=== PATIENT | male | born 1985 | race Caucasian/White ===

== ENCOUNTER 2019-08-18 16:42 | Emergency (ER) | payer OTHER, SELFPAY ==
--- NOTE | 2019-08-18 17:06 | HMH.EDUTC ---
[facility] [place] Disposition Clinical Impression: Tick bite Qualifiers: Encounter type: initial encounter Qualified Code(s): W57.XXXA - Bitten or stung by nonvenomous insect and other nonvenomous arthropods, initial encounter Disposition: Home, Self-Care Condition on Discharge: Good Instructions: Protect Yourself from Tickborne Illnesses Additional Instructions: Check yourself frequently for ticks. The longer a tick remains embedded the more likely it is to give you a tick borne illness. Follow up with your regular doctor. Take the medications as directed. GO TO THE ER FOR ANY WORSENING SYMPTOMS OR CONCERNS Prescriptions: Mupirocin [Bactroban 2% Ointment 22gm tube] 1 applicatio TP TID 7 Days #1 tube Transmission Status: Received by [facility] Doxycycline Hyclate [Doxycycline 100mg Capsule] 100 mg PO Q12 10 Days #20 cap Transmission Status: Received by [facility] Referrals: Carlos Johnson MD [Primary Care Provider] - Time of Disposition: 17:27 Medical Decision Making - Medical Records Medical records reviewed: No: I reviewed the patient's medical records. - Obey Inquiry Pt receiving controlled substance: No Vital Signs: 08/18/19 17:08 08/18/19 17:30 Temperature 98.3 F 98.3 F Temperature Source Oral Pulse Rate 112 H Pulse Rate [Right Brachial] 112 H Respiratory Rate 20 20 Blood Pressure 130/70 Blood Pressure [Right Arm] 130/70 Blood Pressure Mean [Right Arm] 90 Blood Pressure Source [Right Arm] Automatic Cuff Blood Pressure Position [Right Arm] Sitting 02 Sat by Pulse Oximetry 100 Oxygen Delivery Method Room Air [facility] [place] HPI - General Stated complaint: Had a tick left shoulder to be checked Time Seen by Provider: 08/18/19 17:06 - History of Present Illness Provider Complaint: He states that 3 days ago he found a tick embedded in his left upper arm. His dog was recently diagnosed with lyme's disease. He denies any joint pain or rash at the site or elsewhere. - Related Data Previous Rx's Medication Instructions Recorded Doxycycline Hyclate [Doxycycline 100 mg PO Q12 10 Days #20 cap 08/18/19 100mg Capsule] Mupirocin [Bactroban 2% Ointment 1 applicatio TP TID 7 Days #1 tube 06/30/20 22gm tube] Allergies Allergy/AdvReac Type Severity Reaction Status Date / Time phenylpropanolamine Allergy Verified 03/20/19 17:08 [facility] History - Hepatitis A Screen Attestation statement:: This patient has been screened for Hepatitis A risk factors. I have reviewed the patient's past medical history: Yes - Social History Smoking Status: Current every day smoker Tobacco Type: cigarettes # Packs/Day (cigarettes): 1 Alcohol Intake: current Occupational Status: other ROS Obtained: Yes All systems reviewed & no additional complaints - Constitutional Constitutional: Denies chills, Denies fever(s), Denies poor appetite, Denies malaise - Musculoskeletal Musculoskeletal: Denies joint pain - Integumentary/Breasts Skin/Breast: Denies redness, Reports rash, Denies wounds Physical Exam - General General appearance: alert, in no apparent distress - Head Head exam: atraumatic, normocephalic, normal inspection - Eye Eye exam: Present: normal appearance, PERRL, EOMI - ENT ENT exam: Present: normal exam, normal oropharynx, mucous membranes moist, TM's normal bilaterally, normal external ear exam - Neck Neck exam: Present: normal inspection, full ROM, trachea midline. Absent: meningismus, lymphadenopathy - Chest Chest inspection: Present: normal inspection, symmetric chest wall rise. Absent: tenderness - Respiratory Respiratory exam: Present: normal lung sounds bilaterally. Absent: respiratory distress - Cardiovascular Cardiovascular exam: Present: regular rate, normal rhythm. Absent: JVD - Abdominal Exam Abdominal exam: Present: soft, normal bowel sounds. Absent: distention, tenderness, guarding - Extremities Exam Extremities
[2019-08-18 17:08] VITALS: BP 130/70; PULSE 112; RESP 20; TEMP 36.8; O2SAT 100; BMI 34.8
[2019-08-18 17:30] VITALS: BP 130/70; PULSE 112; RESP 20; TEMP 36.8; O2SAT 100
== END 2019-08-18 17:33 | disposition home or self-care (01) ==
PROVIDERS: Emergency Provider Nurse Practitioner Family; PCP Family Medicine
DX: S40.262A Insect bite (nonvenomous) of left shoulder, initial encounter (principal); W57.XXXA Bitten or stung by nonvenomous insect and other nonvenomous arthropods, initial encounter; F17.210 Nicotine dependence, cigarettes, uncomplicated
CPT/HCPCS: 99201

== ENCOUNTER 2020-01-15 16:13 | Emergency (ER) | payer OTHER, SELFPAY ==
[2020-01-15 16:30] VITALS: BP 161/105; PULSE 113; RESP 20; TEMP 36.9; O2SAT 98; BMI 34.7
--- NOTE | 2020-01-15 16:58 | HMH.EDUTC ---
[facility] [place] Disposition Clinical Impression: Shingles Qualifiers: Herpes zoster complications: without complications Qualified Code(s): B02.9 - Zoster without complications Disposition: Home, Self-Care Condition on Discharge: Good Instructions: Shingles, DI for Shingles Additional Instructions: Take the medications as directed. ? Keep the rash covered ? Avoid scratching or touching the rash ? Frequently wash your hands to help prevent spreading the varicella zoster virus. ? Avoid contact with people who have not had the chicken pox, especially women who have not had the chicken pox or the chicken pox vaccine, premature or low birthweight infants, and people with compromised immune systems, such as those with certain cancers, receiving cancer treatments, organ transplant recipients, and people with HIV. Follow up with your primary care doctor. GO TO THE ER FOR ANY WORSENING SYMPTOMS OR CONCERNS Prescriptions: Acyclovir [Acyclovir 800mg tab] 800 mg PO 5XDAY 7 Days #35 tab Transmission Status: Received by [facility] methylPREDNISolone [Medrol] 4 mg PO DIRECTED 6 Days #21 tab.ds.pk Transmission Status: Received by [facility] Referrals: PCP,No [Primary Care Provider] - Time of Disposition: 17:07 Medical Decision Making - Medical Records Medical records reviewed: No: I reviewed the patient's medical records. - Obey Inquiry Pt receiving controlled substance: No Vital Signs: 01/15/20 16:30 01/15/20 17:08 Temperature 98.5 F 98.5 F Temperature Source Oral Pulse Rate 113 H Pulse Rate [Left Brachial] 113 H Respiratory Rate 20 20 Blood Pressure 161/105 H Blood Pressure [Left Arm] 161/105 H Blood Pressure Mean [Left Arm] 123 Blood Pressure Source [Left Arm] Automatic Cuff Blood Pressure Position [Left Arm] Sitting 02 Sat by Pulse Oximetry 98 Oxygen Delivery Method Room Air [facility] [place] HPI - General Stated complaint: Rash on right chest into back Time Seen by Provider: 01/15/20 16:58 Mode of Arrival: Ambulatory Source of Information: Patient Limitations: No Limitations Description of Symptoms (Recalled from Triage Doc. by RN): PATIENT C/O RED, RAISED RASH UNDER RIGHT BREAST AND AROUND TO MID BACK. SLIGHTLY PAINFUL, DENIES ITCHING. UNKNOWN CAUSE HEENT Symptoms (Recalled from RN notes): No Resp Symptoms (Recalled from RN notes): No Skin Symptoms (Recalled from RN notes): Yes MS Symptoms (Recalled from RN notes): No Functional Status (Recalled from RN notes): WNL - History of Present Illness Provider Complaint: He states that he has had a rash on his left side for the past 3 days. The rash is painful. It is also itching some. - Related Data Previous Rx's Medication Instructions Recorded Acyclovir [Acyclovir 800mg tab] 800 mg PO 5XDAY 7 Days #35 tab 01/15/20 methylPREDNISolone [Medrol] 4 mg PO DIRECTED 6 Days #21 01/15/20 tab.ds.pk Allergies Allergy/AdvReac Type Severity Reaction Status Date / Time phenylpropanolamine Allergy Verified 03/20/19 17:08 - Worker's Comp Is this a Worker's Comp case?: No [facility] History - Hepatitis A Screen Drug use history?: No High risk sexual behaviors?: No History of sexually transmitted infection?: No Currently employed?: No Childcare worker?: No Do you have indoor plumbing?: Yes Do you have electricity?: Yes Attestation statement:: This patient has been screened for Hepatitis A risk factors. I have reviewed the patient's past medical history: Yes - Social History Smoking Status: Current every day smoker Tobacco Type: cigarettes # Packs/Day (cigarettes): 1 Alcohol Intake: never Occupational Status: other ROS Obtained: Yes All systems reviewed & no additional complaints - Constitutional Constitutional: Reports system reviewed and no additional complaints, except as docu, Reports chills, Denies fever(s), Reports poor appetite, Reports malaise - Eyes Eyes: Reports syste
[2020-01-15 17:08] VITALS: BP 161/105; PULSE 113; RESP 20; TEMP 36.9; O2SAT 98
== END 2020-01-15 17:15 | disposition home or self-care (01) ==
PROVIDERS: Emergency Provider Nurse Practitioner Family
DX: B02.9 Zoster without complications (principal)
CPT/HCPCS: 99201

== ENCOUNTER 2021-09-10 17:13 | Emergency (ER) | payer OTHER, SELFPAY ==
[2021-09-10 17:20] VITALS: BP 158/98; PULSE 87; RESP 22; TEMP 37.2; O2SAT 97; BMI 47.5
--- NOTE | 2021-09-10 17:35 | HMH.EDUTC ---
[facility] [place] Disposition Clinical Impression: Spasm of muscle of lower back Disposition: Home, Self-Care Condition on Discharge: Good Instructions: Hernias: Causes and Treatment Options, DI for Low Back Pain, DI for Muscle Spasm Additional Instructions: *Etodolac chelsea 8 hours with meal as needed for pain/inflammation *Remember you had a Toradol shot in the clinic today, which is similar to Motrin so do not take any motrin tonight *Not additional anti-inflammatory like ibuprofen, motrin, aleve, advil with the above amount of Etodolac. You can still take Tylenol every 4 hours as needed if you need something else for pain *Ice 20 minutes every 2 hours for the first 48 hours after the initial injury followed by moist heat every 20 minutes 3-4 times a day to affected area *Muscle relaxer every 8 hours as needed for muscle spasms but remember, it WILL cause drowsiness You cannot take it and drive, operate machinery or care for small children. *Keep this area active, no movement leads to more stiffness, However take it easy and avoid heavy lifting pushing or pulling *Follow up with you family doctor if no improvement for further treatment Call tomorrow and make appointment with General Surgery for evaluation and treatment for hernia Follow up immediately if you have any pain around hernia, have abdominal pain, trouble passing stool or any life threatening symptoms Straight to ER if any life threatening symptoms Prescriptions: Etodolac 200 mg PO Q8HP PRN #15 cap PRN Reason: Moderate Pain Transmission Status: Received by [id number] Cyclobenzaprine HCl [Flexeril 10mg tablet] 10 mg PO Q8HP PRN #15 tab PRN Reason: Muscle Spasm Transmission Status: Received by [id number] Referrals: Provider,Jace, [Primary Care Provider] - Aaron Steele MD [Staff Physician] - Camilo Valladares MD [Staff Physician] - Forms: Work/School Release Medical Decision Making - Obey Inquiry Pt receiving controlled substance: No Obey was queried for this patient: No Vital Signs: 09/10/21 17:20 09/10/21 17:56 Temperature 98.9 F 98.9 F Temperature Source Oral Pulse Rate 87 Pulse Rate [Left Brachial] 87 Respiratory Rate 22 22 Blood Pressure 158/98 H Blood Pressure [Left Arm] 158/98 H Blood Pressure Mean [Left Arm] 118 Blood Pressure Source [Left Arm] Automatic Cuff Blood Pressure Position [Left Arm] Sitting 02 Sat by Pulse Oximetry 97 Oxygen Delivery Method Room Air Orders (Tests/Meds): ED MEDICATIONS Discontinued Medications Generic Name Dose Route Start Last Admin Trade Name Radha PRN Reason Stop Dose Admin Ketorolac Tromethamine 60 mg 09/10/21 17:42 09/10/21 17:50 Ketorolac 60mg/2ml Vial IM 09/10/21 17:43 60 mg ONCE ONE Administration Methylprednisolone Sodium Succinate 125 mg 09/10/21 17:42 09/10/21 17:50 Methylprednisolone Sod Succ 125mg Vial IM 09/10/21 17:43 125 mg ONCE ONE Administration Medical Decision Narrative: Patient denies pain around umbilical hernia and denies radiation of pain discussed transfer to the ED for evaluation and he declined due to not having pain at this time will call and follow up with PCP or Surgical clinic [facility] [place] HPI - General Stated complaint: back spasms Time Seen by Provider: 09/10/21 17:35 Mode of Arrival: Ambulatory Source of Information: Patient Limitations: No Limitations Description of Symptoms (Recalled from Triage Doc. 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
[2021-09-10 17:56] VITALS: BP 158/98; PULSE 87; RESP 22; TEMP 37.2; O2SAT 97
== END 2021-09-10 18:10 | disposition home or self-care (01) ==
PROVIDERS: Emergency Provider Nurse Practitioner
DX: M62.830 Muscle spasm of back (principal)
CPT/HCPCS: 96372; 99212; G0463

== ENCOUNTER 2021-12-11 17:04 | Emergency (ER) | payer OTHER, SELFPAY ==
[2021-12-11 19:18] VITALS: BP 0/0; PULSE 0; RESP 0; TEMP -17.7; TEMP 0; O2SAT 0
== END 2021-12-11 19:18 | disposition left against medical advice (07) ==
LOC: UTC 17:10
PROVIDERS: Emergency Provider Nurse Practitioner
DX: R05.9 Cough, unspecified (principal); Z53.21 Procedure and treatment not carried out due to patient leaving prior to being seen by health care provider; F17.210 Nicotine dependence, cigarettes, uncomplicated; Z79.52 Long term (current) use of systemic steroids; Z79.899 Other long term (current) drug therapy; Z88.8 Allergy status to other drugs, medicaments and biological substances

== ENCOUNTER 2021-12-12 13:44 | Emergency (ER) | payer OTHER, SELFPAY ==
[2021-12-12 15:17] VITALS: BP 149/104; PULSE 102; RESP 18; TEMP 37.3; O2SAT 95; BMI 51.7
--- NOTE | 2021-12-12 15:34 | EXP.UTC ---
Discharge Plan Disposition Patient Disposition: Home, Self-Care Condition: Good Prescriptions Prescriptions: New benzonatate 100 mg capsule 100 mg PO TID PRN (Reason: cough) Qty: 30 0RF methylprednisolone [Medrol (Adria)] 4 mg tablets,dose pack See Rx Instructions .Route .COMPLEX 6 Days Qty: 21 0RF Rx Instructions: taper pack; amoxicillin-pot clavulanate 875-125 mg Tablet 1 tab PO Q12H Qty: 20 0RF No Action cyclobenzaprine 10 MG tablet 10 mg PO Q8HP PRN (Reason: Muscle Spasm) Qty: 15 0RF etodolac 200 MG capsule 200 mg PO Q8HP PRN (Reason: Moderate Pain) Qty: 15 0RF acyclovir 800 MG tablet 800 mg PO 5XDAY 7 Days Qty: 35 0RF methylprednisolone 4 MG tablets,dose pack 4 mg PO DIRECTED 6 Days Qty: 21 0RF Referrals Follow up/Referrals: Provider,Referral, MD [Primary Care Provider] - See instructions Activity Restrictions/Add. Instructions Additional Instructions/Restrictions: *Monitor Temp, Over the counter Motrin or Tylenol as directed/as needed Tylenol every 4 hours and Motrin every 6 hours (as long as your family doctor has told you that you can take it) for fever or pain. and straight to ER if unable to lower temp less than 101.0 after medication given *Warm salt water gargles may help to soothe the throat *Throat Lozenges? *Warm fluids like tea with honey may help to soothe the throat? *Sleep elevated *Humidifier/Vaporizer Take medication as prescribed Return if needed Follow up IMMEDIATELY for new or worsening symptoms or no Noticeable improvement over the next 48-72 hours. 911 for difficulty breathing or swallowing Clinical Impressions Clinical Impression: Bronchitis Sinusitis Qualifiers: Sinusitis location: unspecified location Chronicity: unspecified Qualified Code(s): J32.9 - Chronic sinusitis, unspecified Stand Alone Forms Stand Alone Forms: Work/School Release Instructions Patient Instructions: Sinusitis, Acute Bronchitis, DI for Sinusitis Discharge ED Provider: Diana Alvarez [facility] General Stated complaint: Cough, Congestions Mode of Arrival: Ambulatory Source of Information: Patient Limitations: No Limitations Time Seen by Provider: 12/12/21 15:34 Description of Symptoms (Recalled from Triage Doc. by RN): pt comes in with c/o sinus congestion, an chest congestion. pt states he was seen previously and got better, but cant clear his cough HEENT Symptoms (Recalled from RN notes): No Resp Symptoms (Recalled from RN notes): Yes Skin Symptoms (Recalled from RN notes): No MS Symptoms (Recalled from RN notes): No Functional Status (Recalled from RN notes): n/a History of Present Illness Provider Complaint: Patient states that he has been trying to fight a sinus infection for almost 2 weeks States that he has been taking OTC medications and vitamins but it hasnt got any better and feels like it is trying to move into his chest States that today the drainage was making her cough worse so he came in Related Data Previous Rx's Medication Instructions Recorded acyclovir 800 mg tablet 800 mg PO 5XDAY 7 days #35 tabs 01/15/20 methylprednisolone 4 mg tablets in 4 mg PO DIRECTED 6 days ##21 01/15/20 a dose pack cyclobenzaprine 10 mg tablet 10 mg PO Q8HP PRN Muscle Spasm #15 09/10/21 tabs etodolac 200 mg capsule 200 mg PO Q8HP PRN Moderate Pain 09/10/21 #15 caps amoxicillin 875 mg-potassium 1 tab PO Q12H #20 tabs 12/12/21 clavulanate 125 mg tablet benzonatate 100 mg capsule 100 mg PO TID PRN cough #30 caps 12/12/21 methylprednisolone 4 mg tablets in See Rx Instructions .Route 12/12/21 a dose pack (Medrol (Adria)) .COMPLEX 6 days #21 tabs Allergies Allergy/AdvReac Type Severity Reaction Status Date / Time phenylpropanolamine Allergy Verified 12/12/21 15:22 Worker's Comp Is this a Worker's Comp case?: No PFSH PFSH Social History Smoking Status: Current ev
[2021-12-12 15:50] VITALS: BP 149/94; PULSE 102; RESP 18; TEMP 37.3; O2SAT 96
== END 2021-12-12 15:49 | disposition home or self-care (01) ==
PROVIDERS: Emergency Provider Nurse Practitioner
DX: J40 Bronchitis, not specified as acute or chronic (principal); J32.9 Chronic sinusitis, unspecified
CPT/HCPCS: 99212; G0463

== ENCOUNTER 2022-06-16 13:33 | Emergency (ER) | payer OTHER, SELFPAY ==
[2022-06-16 13:43] VITALS: BP 157/102; PULSE 107; RESP 23; TEMP 36.8; O2SAT 95; BMI 46.7
--- NOTE | 2022-06-16 13:51 | EXP.UTC ---
Discharge Plan Disposition Patient Disposition: Home, Self-Care Condition: Good Prescriptions Prescriptions: New prednisone [prednisone] 20 mg tablet 20 mg PO BID Qty: 10 0RF No Action cyclobenzaprine 10 MG tablet 10 mg PO Q8HP PRN (Reason: Muscle Spasm) Qty: 15 0RF etodolac 200 MG capsule 200 mg PO Q8HP PRN (Reason: Moderate Pain) Qty: 15 0RF benzonatate 100 mg capsule 100 mg PO TID PRN (Reason: cough) Qty: 30 0RF methylprednisolone [Medrol (Adria)] 4 mg tablets,dose pack See Rx Instructions .Route .COMPLEX 6 Days Qty: 21 0RF Rx Instructions: taper pack; amoxicillin-pot clavulanate 875-125 mg Tablet 1 tab PO Q12H Qty: 20 0RF acyclovir 800 MG tablet 800 mg PO 5XDAY 7 Days Qty: 35 0RF methylprednisolone 4 MG tablets,dose pack 4 mg PO DIRECTED 6 Days Qty: 21 0RF Referrals Follow up/Referrals: Fermin Arenas MD [Primary Care Provider] - See instructions Activity Restrictions/Add. Instructions Additional Instructions/Restrictions: No sign of a bacterial infection. Likely viral. Viruses can take 7-14 days to run their course. Nasal saline and bulb syringe or nose Irma to remove nasal drainage to help with nasal congestion. Hard to eat, drink, sleep with nasal congestion so important to keep this cleaned out. Monitor temp. Tylenol or Motrin as needed for pain or fever Encourage fluids, water, Gatorade, Powerade, Pedialyte if infant/toddler/child Warm salt water gargles Warm fluids Sore throat lozenges Sleep elevated Humidifier/vaporizer Follow-up immediately for new or worsening symptoms or no noticeable improvement over the next 48-72 hours. call later today for results from nasal swab Clinical Impressions Clinical Impression: Upper respiratory infection Instructions Patient Instructions: DI for Viral Upper Respiratory Infection -- Adult [facility]a [facility] [place] HPI General Stated complaint: cough, congestion Mode of Arrival: Ambulatory Source of Information: Patient Limitations: No Limitations Time Seen by Provider: 06/16/22 13:52 Description of Symptoms (Recalled from Triage Doc. by RN): pt c/o a productive cough and congestion/nasal drainage since yesterday. HEENT Symptoms (Recalled from RN notes): Yes Resp Symptoms (Recalled from RN notes): Yes Skin Symptoms (Recalled from RN notes): No MS Symptoms (Recalled from RN notes): No Functional Status (Recalled from RN notes): wnl History of Present Illness Provider Complaint: 37 yr old male presents for cough, congestion and clear nasal drainage since yesterday Related Data Previous Rx's Medication Instructions Recorded acyclovir 800 mg tablet 800 mg PO 5XDAY 7 days #35 tabs 01/15/20 methylprednisolone 4 mg tablets in 4 mg PO DIRECTED 6 days ##21 01/15/20 a dose pack cyclobenzaprine 10 mg tablet 10 mg PO Q8HP PRN Muscle Spasm #15 09/10/21 tabs etodolac 200 mg capsule 200 mg PO Q8HP PRN Moderate Pain 09/10/21 #15 caps amoxicillin 875 mg-potassium 1 tab PO Q12H #20 tabs 12/12/21 clavulanate 125 mg tablet benzonatate 100 mg capsule 100 mg PO TID PRN cough #30 caps 12/12/21 methylprednisolone 4 mg tablets in See Rx Instructions .Route 12/12/21 a dose pack (Medrol (Adria)) .COMPLEX 6 days #21 tabs prednisone 20 mg tablet 20 mg PO BID #10 tabs 06/16/22 Allergies Allergy/AdvReac Type Severity Reaction Status Date / Time phenylpropanolamine Allergy Verified 06/16/22 13:46 Worker's Comp Is this a Worker's Comp case?: No [facility] Disclaimer: The information contained in this section may have been updated after the patient was seen, as this information can be updated by other users. Social History , [employer]) Smoking Status: Current every day smoker tobacco type: cigarettes packs per day: 1 alcohol intake: never current occupational status: other Travel in the last 8 weeks: None ROS Obtained: Yes All
[2022-06-16 13:57] VITALS: BP 157/102; PULSE 107; RESP 23; TEMP 36.8
[2022-06-16 16:09] LABS: Coronavirus 19, PCR Not Detected (NotDetected); Influenza A, PCR Not Detected (NotDetected); Influenza B, PCR Not Detected (NotDetected)
== END 2022-06-16 13:58 | disposition home or self-care (01) ==
PROVIDERS: Emergency Provider Nurse Practitioner Family; PCP Family Medicine
DX: J06.9 Acute upper respiratory infection, unspecified (principal); R05.9 Cough, unspecified; F17.210 Nicotine dependence, cigarettes, uncomplicated
CPT/HCPCS: 99212; 99214; C9803; G0463; U0003; U0005

== ENCOUNTER 2022-06-24 17:16 | Emergency (ER) | payer OTHER, SELFPAY ==
[2022-06-24 18:39] VITALS: BP 153/94; PULSE 89; RESP 16; TEMP 37.1; O2SAT 94; BMI 54.8
--- NOTE | 2022-06-24 19:09 | EXP.UTC ---
Discharge Plan Disposition Patient Disposition: Home, Self-Care Condition: Good Prescriptions Prescriptions: New azithromycin [azithromycin] 250 mg tablet 250 mg PO DIRECTED Qty: 6 0RF Rx Instructions: Take two (2) tablets on day #1, then one (1) tablet day #2 thru #5 prednisone [prednisone] 20 mg tablet 20 mg PO BID 3 Days Qty: 6 0RF No Action cyclobenzaprine 10 MG tablet 10 mg PO Q8HP PRN (Reason: Muscle Spasm) Qty: 15 0RF etodolac 200 MG capsule 200 mg PO Q8HP PRN (Reason: Moderate Pain) Qty: 15 0RF benzonatate 100 mg capsule 100 mg PO TID PRN (Reason: cough) Qty: 30 0RF methylprednisolone [Medrol (Adria)] 4 mg tablets,dose pack See Rx Instructions .Route .COMPLEX 6 Days Qty: 21 0RF Rx Instructions: taper pack; amoxicillin-pot clavulanate 875-125 mg Tablet 1 tab PO Q12H Qty: 20 0RF prednisone [prednisone] 20 mg tablet 20 mg PO BID Qty: 10 0RF acyclovir 800 MG tablet 800 mg PO 5XDAY 7 Days Qty: 35 0RF methylprednisolone 4 MG tablets,dose pack 4 mg PO DIRECTED 6 Days Qty: 21 0RF Referrals Follow up/Referrals: Fermin Arenas MD [Primary Care Provider] - See instructions Activity Restrictions/Add. Instructions Additional Instructions/Restrictions: Start antibiotic today. Be sure to complete entire prescription even if feeling better Tylenol and ibuprofen as needed for pain or fever Humidifier/vaporizer/hot steamy shower Follow-up with primary care tomorrow. Follow-up immediately in the ER of the [facility] for new or worsening symptoms or no noticeable improvement over the next 48-72 hours. Stop smoking Inhaler every 4-6 hours as needed. Should help open airways improved cough, wheezing, shortness of breath Start steroids today. Helps with inflammation therefore coughing and wheezing. Follow directions on package. Clinical Impressions Clinical Impression: Acute bronchitis Instructions Patient Instructions: DI for Acute Bronchitis Discharge ED Provider: Lilia ([facility])Olena [facility] [place] HPI General Stated complaint: SOB swelling behine ears Mode of Arrival: Ambulatory Source of Information: Patient Limitations: No Limitations Time Seen by Provider: 06/24/22 19:09 Description of Symptoms (Recalled from Triage Doc. by RN): pt c/o sinus pressure and cough x1wk. pt was seen here last week with the same type of symptoms HEENT Symptoms (Recalled from RN notes): Yes Resp Symptoms (Recalled from RN notes): Yes Skin Symptoms (Recalled from RN notes): No MS Symptoms (Recalled from RN notes): No Functional Status (Recalled from RN notes): wnl History of Present Illness Provider Complaint: 37 yr old male presents for c/o sinus pressure and coughing up thick sputum x1wk. pt was seen here last week with the same type of symptoms Related Data Previous Rx's Medication Instructions Recorded acyclovir 800 mg tablet 800 mg PO 5XDAY 7 days #35 tabs 01/15/20 methylprednisolone 4 mg tablets in 4 mg PO DIRECTED 6 days ##21 01/15/20 a dose pack cyclobenzaprine 10 mg tablet 10 mg PO Q8HP PRN Muscle Spasm #15 09/10/21 tabs etodolac 200 mg capsule 200 mg PO Q8HP PRN Moderate Pain 09/10/21 #15 caps amoxicillin 875 mg-potassium 1 tab PO Q12H #20 tabs 12/12/21 clavulanate 125 mg tablet benzonatate 100 mg capsule 100 mg PO TID PRN cough #30 caps 12/12/21 methylprednisolone 4 mg tablets in See Rx Instructions .Route 12/12/21 a dose pack (Medrol (Adria)) .COMPLEX 6 days #21 tabs prednisone 20 mg tablet 20 mg PO BID #10 tabs 06/16/22 azithromycin 250 mg tablet 250 mg PO DIRECTED #6 tabs 06/24/22 prednisone 20 mg tablet 20 mg PO BID 3 days #6 tabs 06/24/22 Allergies Allergy/AdvReac Type Severity Reaction Status Date / Time phenylpropanolamine Allergy Verified 06/24/22 18:42 Worker's Comp Is this a Worker's Comp case?: No [facility] Disclaimer: The information contained in this section may have been updated after the patient was seen, as this infor
[2022-06-24 19:37] VITALS: BP 153/94; PULSE 89; RESP 98; TEMP 37.1
== END 2022-06-24 19:37 | disposition home or self-care (01) ==
PROVIDERS: Emergency Provider Nurse Practitioner Family; PCP Family Medicine
DX: J20.9 Acute bronchitis, unspecified (principal); F17.210 Nicotine dependence, cigarettes, uncomplicated
CPT/HCPCS: 99212; 99214; G0463

== ENCOUNTER 2022-06-30 15:10 | Emergency (ER) | payer OTHER, SELFPAY ==
[2022-06-30 15:10] VITALS: BP 152/97; PULSE 106; RESP 24; TEMP 37.1; O2SAT 95; BMI 53.1
[2022-06-30 15:21] VITALS: BP 152/97; PULSE 106; RESP 24; TEMP 37.1; O2SAT 95
--- NOTE | 2022-06-30 15:21 | EXP.UTC ---
Discharge Plan Disposition Patient Disposition: Home, Self-Care Condition: Good Prescriptions Prescriptions: New amoxicillin-pot clavulanate 875-125 mg Tablet 1 tab PO Q12H 7 Days Qty: 14 0RF fluticasone propionate [Flonase Allergy Relief] 50 mcg/actuation spray,suspension 1 - 2 spray intranasal DAILY Qty: 16 0RF Rx Instructions: administer into each nostril Referrals Follow up/Referrals: Fermin Arenas MD [Primary Care Provider] - See instructions Activity Restrictions/Add. Instructions Additional Instructions/Restrictions: *Monitor Temp, Over the counter Motrin or Tylenol as directed/as needed Tylenol every 4 hours and Motrin every 6 hours (as long as your family doctor has told you that you can take it) for fever or pain. and straight to ER if unable to lower temp less than 101.0 after medication given *Warm salt water gargles may help to soothe the throat *Throat Lozenges? *Warm fluids like tea with honey may help to soothe the throat? *Sleep elevated *Humidifier/Vaporizer *Flonase 2 sprays in each nostril daily but be aware that it may take 2-3 days before you notice improvement Take medication as prescribed Follow up IMMEDIATELY for new or worsening symptoms or no Noticeable improvement over the next 48-72 hours. 911 for difficulty breathing or swallowing Clinical Impressions Clinical Impression: Sinusitis Instructions Patient Instructions: DI for Sinusitis, Sinusitis Discharge ED Provider: Diana Alvarez [facility] General Stated complaint: sinus pressure Mode of Arrival: Ambulatory Source of Information: Patient Limitations: No Limitations Time Seen by Provider: 06/30/22 15:21 Description of Symptoms (Recalled from Triage Doc. by RN): PATIENT C/O SINUS PRESSURE WITH YELLOW/GREEN DRAINAGE. HE REPORTS FINISHING A Z-PACK YESTERDAY FOR A SINUS INFECTION AND STATES HIS COUGH IS BETTER HEENT Symptoms (Recalled from RN notes): Yes Resp Symptoms (Recalled from RN notes): No Skin Symptoms (Recalled from RN notes): No MS Symptoms (Recalled from RN notes): No Functional Status (Recalled from RN notes): WNL History of Present Illness Provider Complaint: Patient states that he was recently dx with sinusitis and bronchitis States that his chest is better and no longer having wheezing and chest congestion but his sinus pain and pressure is worse States that he is now blowing out dark yellowish green and pressure behind his eyes is worse so he came back in Related Data Previous Rx's Medication Instructions Recorded amoxicillin 875 mg-potassium 1 tab PO Q12H 7 days #14 tabs 06/30/22 clavulanate 125 mg tablet fluticasone propionate 50 1 - 2 spray intranasal DAILY #16 06/30/22 mcg/actuation nasal grams spray,suspension (Flonase Allergy Relief) Allergies Allergy/AdvReac Type Severity Reaction Status Date / Time phenylpropanolamine Allergy Verified 06/24/22 18:42 Worker's Comp Is this a Worker's Comp case?: No [facility] Disclaimer: The information contained in this section may have been updated after the patient was seen, as this information can be updated by other users. Social History , [employer]) Smoking Status: Current every day smoker tobacco type: cigarettes packs per day: 1 alcohol intake: never current occupational status: other Travel in the last 8 weeks: None ROS Obtained: Yes All systems reviewed & no additional complaints except as documented and Yes Systems reviewed as appropriate & no additional complaints except as documented Constitutional Constitutional: Reports system reviewed and no additional complaints, except as documented and Reports as per HPI ENT Ears, Nose, Mouth, and Throat: Reports system reviewed and no additional complaints, except as documented, Reports as per HPI, Reports sinus pain and Reports sinus pressure Cardiovascular Cardiovascular: Reports system reviewed and no marko
== END 2022-06-30 15:35 | disposition home or self-care (01) ==
PROVIDERS: Emergency Provider Nurse Practitioner; PCP Family Medicine
DX: J01.90 Acute sinusitis, unspecified (principal); F17.210 Nicotine dependence, cigarettes, uncomplicated
CPT/HCPCS: 99212; 99214; G0463

== ENCOUNTER → 2022-07-17 09:50 | Outpatient (CLI) | payer OTHER, SELFPAY ==
--- NOTE | 2022-07-17 09:52 | CT_ITS ---
FINAL REPORT TECHNIQUE: After the administration of oral and intravenous contrast, axial images were obtained through the abdomen and pelvis by computed tomography. The study was performed with techniques to keep radiation dose as low as reasonably achievable, (ALARA). Individual dose reduction techniques using automated exposure control or adjustment of mA and/or kV according to the patient's size were employed. CLINICAL HISTORY: abdominal pain, EVALUATE UMBILICAL HERNIA FINDINGS: Abdomen: The lung bases are clear. There is mild fatty infiltration of the liver. There is a small enhancing focus in the posterior right lobe of the liver measuring 8 mm in diameter, may represent a small hemangioma. There are gallstones in the gallbladder. There is a small sliding-type hiatal hernia. The spleen is unremarkable. The adrenals are normal. The pancreas is unremarkable. The kidneys enhance appropriately. The aorta is normal in caliber. There is no free fluid or adenopathy. There are 2 separate hernias in the anterior abdominal wall near the level of the umbilicus. The smaller more superior focus has a defect measuring approximately 7 mm in craniocaudal dimension. The larger more inferior focus measures approximally 2.8 cm in craniocaudal dimension. The hernias contain only fat. There is some inflammatory stranding surrounding the smaller more superior hernia. Pelvis: The appendix is not identified. The urinary bladder is unremarkable. There is no free fluid or adenopathy. IMPRESSION: Hernias as detailed above. Reviewed, Interpreted and Dictated by Dex Castro MD Transcribed by Rody Rahman Authenticated and . [facility]
== END ==
PROVIDERS: PCP Family Medicine; Visit Provider Surgery
DX: R10.9 Unspecified abdominal pain (principal)
CPT/HCPCS: 74177; Q9967

== ENCOUNTER → 2022-08-13 15:11 | Outpatient (CLI) | payer OTHER, SELFPAY | PROVIDERS: PCP Family Medicine; Visit Provider Internal Medicine Pulmonary Disease | DX: R06.09 Other forms of dyspnea (principal) | CPT/HCPCS: 94762 ==

== ENCOUNTER → 2022-08-22 10:00 | Outpatient (CLI) | payer OTHER, SELFPAY ==
--- NOTE | 2022-08-22 10:58 | XR_ITS ---
FINAL REPORT CLINICAL HISTORY: SOB COMPARISON: None FINDINGS: Two views of the chest were obtained. The heart size and pulmonary vascularity are within normal limits. The mediastinum is normal. There is mild left bronchial wall thickening, likely bronchitis. There is no pneumothorax. The bony thorax is intact. IMPRESSION: Mild left bronchial wall thickening, likely bronchitis. Reviewed, Interpreted and Dictated by Camilo Pisano III, MD Transcribed by Jami Garrison Authenticated and [facility]
== END ==
PROVIDERS: PCP Family Medicine; Visit Provider Internal Medicine Pulmonary Disease
DX: R06.02 Shortness of breath (principal)
CPT/HCPCS: 71046; 94060; 94618; 94726; 94729

== ENCOUNTER → 2022-08-30 15:00 | Outpatient (CLI) | payer OTHER, SELFPAY | PROVIDERS: PCP Family Medicine; Visit Provider Nurse Practitioner Family | DX: Z01.810 Encounter for preprocedural cardiovascular examination (principal); R06.09 Other forms of dyspnea; J45.909 Unspecified asthma, uncomplicated; F17.210 Nicotine dependence, cigarettes, uncomplicated | CPT/HCPCS: 93306 ==

== ENCOUNTER 2022-11-03 18:17 | Emergency (ER) | payer OTHER, SELFPAY ==
[2022-11-03 18:18] VITALS: BP 145/92; PULSE 104; RESP 20; TEMP 36.7; O2SAT 97; BMI 54.8
[2022-11-03 18:24] VITALS: BP 145/92; PULSE 104; O2SAT 100
--- NOTE | 2022-11-03 18:56 | HMH.EDGENADL ---
Discharge Plan Disposition Patient Disposition: Home, Self-Care Condition: Good Prescriptions Prescriptions: New methocarbamol 750 mg tablet 750 mg PO Q8H PRN (Reason: pain) Qty: 20 0RF naproxen 500 mg tablet 500 mg PO BID PRN (Reason: pain) Qty: 20 0RF lidocaine [Lidoderm] 5 % adhesive patch,medicated 1 patch topical DAILY Qty: 15 0RF Rx Instructions: leave on most painful area for up to 12 hrs No Action fluticasone propionate [Flonase Allergy Relief] 50 mcg/actuation spray,suspension 1 - 2 spray intranasal .prn Rx Instructions: administer into each nostril budesonide-formoterol [Symbicort] 80-4.5 mcg/actuation HFA aerosol inhaler 1 inh inhalation QID PRN (Reason: shortness of breath or wheezing) 90 Days Qty: 10.2 2RF nicotine (polacrilex) 2 mg gum 2 mg buccal Q2H PRN (Reason: nicotine cravings) Qty: 396 0RF Rx Instructions: Weeks 1 to 6: Chew 1 piece every 2 hours As NEEDED Weeks 7 to 9: Chew 1 piece every 4 hors As NEEDED Weeks 1o to 12: Chew 1 piece every 8 hours As NEEDED Referrals Follow up/Referrals: Fermin Arenas MD [Primary Care Provider] - See instructions Activity Restrictions/Add. Instructions Additional Instructions/Restrictions: You were evaluated in the emergency department today. Please miner pick your prescriptions at the pharmacy and take them as prescribed. You may also take Tylenol in addition to these as needed for pain. Follow-up with your primary care provider over the next 3 days. Return to the emergency department for any new or worsening symptoms. Clinical Impressions Clinical Impression: Acute right-sided back pain Qualifiers: Back pain location: low back pain Sciatica presence: with sciatica Sciatica laterality: sciatica of right side Qualified Code(s): M54.41 - Lumbago with sciatica, right side Discharge ED Provider: Jessica Pearce General Adult HPI General Chief complaint: PAIN Stated complaint: back pain Time Seen by Provider: 11/03/22 18:46 Mode of Arrival: Ambulatory Source of Information: Patient Limitations: No Limitations Description of Symptoms (Recalled from ER Triage Doc. by RN): Presents to ED with c/o Right sided back pain that radiates down his RLE x 3-4 days. Patient reports taking Cyclobenzaprine 200mg at approx. 1530 with some relief. PPatient reports pain worsens when laying down at night. 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 He denies any known trauma or injuries recently. It is worse when he tries to lie down or to sit. It gets better with walking and moving around. He denies any saddle anesthesia, numbness, tingling, incontinence, retention, or other concerns. He denies any fevers, chills, history of IV drug use, or other issues. He took Flexeril without good improvement. He denies taking any other medications. He states this feels similar to a prior flare of back pain that he had in the past which resolved with muscle laxer's and anti-inflammatories. Related Data Home Medications Medication Instructions Recorded Confirmed fluticasone propionate 50 1 - 2 spray intranasal .prn 07/24/22 08/22/22 mcg/actuation nasal spray,suspension (Flonase Allergy Relief) Previous Rx's Medication Instructions Recorded budesonide-formoterol HFA 80 1 inh inhalation QID PRN shortness 07/24/22 mcg-4.5 mcg/actuation aerosol of breath or wheezing 90 days inhaler (Symbicort) #10.2 grams nicotine (polacrilex) 2 mg gum 2 mg buccal Q2H PRN nicotine 07/24/22 cravings #396 ea lidocaine 5 % topical patch 1 patch topical DAILY #15 ea 11/03/22 (Lidoderm) methocarbamol 750 mg tablet 750 mg PO Q8H PRN pain #20 tabs 11/03/22 naproxen 500 mg tablet 500 mg PO BI
--- NOTE | 2022-11-03 19:06 | PC.NURSE ---
Rounded on patient; call theodore within reach of patient
[2022-11-03 20:04] VITALS: BP 142/86; PULSE 89; RESP 16; TEMP 36.7; O2SAT 95
== END 2022-11-03 20:06 | disposition home or self-care (01) ==
PROVIDERS: Emergency Provider Emergency Medicine; PCP Family Medicine
DX: M54.41 Lumbago with sciatica, right side (principal); J44.9 Chronic obstructive pulmonary disease, unspecified; Z87.891 Personal history of nicotine dependence
CPT/HCPCS: 96372; 99283

== ENCOUNTER 2023-08-02 14:34 | Emergency (ER) | payer SELFPAY ==
[2023-08-02 14:36] VITALS: BP 165/99; PULSE 97; RESP 20; TEMP 37.3; O2SAT 93; BMI 50.1
--- NOTE | 2023-08-02 15:05 | ED_ITS ---
Discharge Plan Disposition Patient Disposition: Home, Self-Care Prescriptions Prescriptions: No Action fluticasone propionate [Flonase Allergy Relief] 50 mcg/actuation spray,suspension 1 - 2 spray intranasal .prn Rx Instructions: administer into each nostril budesonide-formoterol [Symbicort] 80-4.5 mcg/actuation HFA aerosol inhaler 1 inh inhalation QID PRN (Reason: shortness of breath or wheezing) 90 Days Qty: 10.2 2RF nicotine (polacrilex) 2 mg gum 2 mg buccal Q2H PRN (Reason: nicotine cravings) Qty: 396 0RF Rx Instructions: Weeks 1 to 6: Chew 1 piece every 2 hours As NEEDED Weeks 7 to 9: Chew 1 piece every 4 hors As NEEDED Weeks 1o to 12: Chew 1 piece every 8 hours As NEEDED methocarbamol 750 mg tablet 750 mg PO Q8H PRN (Reason: pain) Qty: 20 0RF naproxen 500 mg tablet 500 mg PO BID PRN (Reason: pain) Qty: 20 0RF lidocaine [Lidoderm] 5 % adhesive patch,medicated 1 patch topical DAILY Qty: 15 0RF Rx Instructions: leave on most painful area for up to 12 hrs Referrals Follow up/Referrals: Fermin Arenas MD [Primary Care Provider] - See instructions Clinical Impressions Clinical Impression: Hymenoptera sting Instructions Patient Instructions: DI for Skin Abscess Discharge ED Provider: Nicko Erwin General Adult HPI General Chief complaint: Skin/Abscess/Foreign Body Stated complaint: bee sting to the back Time Seen by Provider: 08/02/23 15:01 Mode of Arrival: Ambulatory Source of Information: Patient Limitations: No Limitations Description of Symptoms (Recalled from ER Triage Doc. by RN): bee sting to back. is the stinger still there? not allergic History of Present Illness HPI narrative: Patient is a 38-year-old male presenting today with a bee sting to his back. States that he is here in the emergency department to make sure that the stinger is not still embedded in the sting location. He denies any anaphylactic symptoms. States that he had a bee sting in the past in his thigh which had an embedded finger which is what prompted his visit today. Related Data Home Medications Medication Instructions Recorded Confirmed fluticasone propionate 50 1 - 2 spray intranasal .prn 07/24/22 08/22/22 mcg/actuation nasal spray,suspension (Flonase Allergy Relief) Previous Rx's Medication Instructions Recorded budesonide-formoterol HFA 80 1 inh inhalation QID PRN shortness 07/24/22 mcg-4.5 mcg/actuation aerosol of breath or wheezing 90 days inhaler (Symbicort) #10.2 grams nicotine (polacrilex) 2 mg gum 2 mg buccal Q2H PRN nicotine 07/24/22 cravings #396 ea lidocaine 5 % topical patch 1 patch topical DAILY #15 ea 11/03/22 (Lidoderm) methocarbamol 750 mg tablet 750 mg PO Q8H PRN pain #20 tabs 11/03/22 naproxen 500 mg tablet 500 mg PO BID PRN pain #20 tabs 11/03/22 Allergies Allergy/AdvReac Type Severity Reaction Status Date / Time phenylpropanolamine Allergy Verified 08/22/22 11:29 [facility] Disclaimer: The information contained in this section may have been updated after the patient was seen, as this information can be updated by other users. Medical History Asthma COPD mixed type Dyspnea on exertion Encounter for pre-operative cardiovascular clearance Smoking greater than 20 pack years Surgical History No history of previous surgery Family History Other Heart attack Social History Smoking Status: Never smoker alcohol intake: never current occupational status: other Travel in the last 8 weeks: None ROS Obtained: Yes All systems reviewed & no additional complaints except as documented Physical Exam General General appearance: alert Respiratory Respiratory exam: Present normal lung sounds bilaterally Cardiovascular Cardiovascular exam: Present regular rate Back Exam Back 1 view image: 2 1. Localized area of erythema inspected closely there is no evidence of a foreign body specifically a stinger Neurological Exam Neurological exam: Present alert and oriented X3 Medical Decision Making Obey Inquiry Pt receiving controlled substance: No Vital Signs: 08/02/23 14:36 Temperature 99.1 F Temperature Source Oral Pulse Rate [Right] 97 H Respiratory Rate 20 Blood Pressure [Right Arm] 165/99 H Blood Pressure Mean [Right Arm] 121 02 Sat by Pulse Oximetry 93 L Oxygen Delivery Method Room Air Medical Decision Narrative: Patient with localized hymenoptera sting and inflammation no evidence of systemic inflammatory response or anaphylaxis no evidence of retained foreign body or stinger that is still embedded. Supportive care discussed he was discharged in stable condition Critical Care Critical Care Time Critical Care Time: No
[2023-08-02 15:06] VITALS: BP 165/99; PULSE 92; RESP 20; TEMP 37.2; O2SAT 93
== END 2023-08-02 15:10 | disposition home or self-care (01) ==
PROVIDERS: Emergency Provider Emergency Medicine; PCP Family Medicine
DX: S20.469A Insect bite (nonvenomous) of unspecified back wall of thorax, initial encounter (principal); W57.XXXA Bitten or stung by nonvenomous insect and other nonvenomous arthropods, initial encounter
CPT/HCPCS: 99282